=== PATIENT | male | born 1985 | race Caucasian/White ===

== ENCOUNTER 2018-10-23 15:33 | Emergency (ER) | payer OTHER, SELFPAY ==
[2018-10-23 15:35] VITALS: BP 148/98; PULSE 99; RESP 18; TEMP 36.2; O2SAT 97; BMI 35.7
--- NOTE | 2018-10-23 15:52 | ED.VIS.GEN ---
History of Present Illness Chief Complaint: Dental Detail of Chief Complaint: Dental pain, facial swelling, dizziness Informant: Patient, Family Onset: Days Current Severity: Mild Maximum Severity: Mild Narrative: Patient states that he had right upper dental pain 2 days ago. He took some Tylenol and yesterday seemed to feel well. This morning he noted some right facial swelling. Approximate hour before arrival he noted the swelling seem to be getting worse and he felt somewhat dizzy when first standing up. He does have cavities filled in the right upper teeth and states that he was told at one point he may require root canal. He has not had any recent problems with his teeth. Past Medical History Primary Care Physician: Matthieu Moran MD [Primary Care Provider] - Prior records reviewed: Yes Past Medical History: - - Reviewed Lives: Spouse/ Significant Other Review of Systems General: Denies: Chills, Fever Eyes: Denies: Visual changes - bilaterally ENT: Reports: - - Right facial swelling. Denies: Bilateral ear pain, Sore throat Cardiovascular: Denies: Chest pain Respiratory: Denies: Dyspnea Gastrointestinal: Denies: Abdominal pain Musculoskeletal: Denies: Neck pain Skin: Denies: Rash Neurological: Denies: Headache Physical Exam Vital Signs/Narrative: Vital Signs Temp Pulse Resp BP Pulse Ox 10/23/18 15:35 97.1 F L 99 18 148/98 H 97 Inital Vital Signs reviewed: Yes General: Well nourished, Well developed Head: Normocephalic Eyes: Perrl, EOMI ENT: TM's clear, - - Right maxillary second molar is mildly tender to palpation. Fillings are in place along the molars. There is no significant gum edema. He does have facial swelling over the right maxilla. No erythema. Neck: Supple, No lymphadenopathy Cardiovascular: Regular rate, Regular rhythm Respiratory: No distress, CTA bilaterally Abdomen: Soft, Nontender Skin: Normal color Neurological: Alert, Oriented x3 Psychological: Normal affect Diagnostic/Tx/Re-eval - Medical Decision Making Patient will be given a course of Augmentin to cover both dental as well as sinus. He has a dentist that he can follow-up with this week. ED Disposition - Plan for ED Patient: Disposition: Home or Assisted Living Diagnosis: Dental infection Instructions: Dental Abscess Prescriptions: Amox/Clavulanate Tablet [Augmentin Tablet] 875 mg PO Q12H #20 tablet Referrals: Matthieu Moran MD [Primary Care Provider] - Additional Instructions: Follow-up with your dentist later this week as discussed.
[2018-10-23] MEDS: Amox/Clavulanate 875 MG Tablet PO (16:02)
--- NOTE | 2018-10-23 16:03 | ED.RN ---
DISCHARGE INSTRUCTIONS GIVEN TO AND REVIEWED WITH PATIENT, PATIENT DENIES QUESTIONS OR CONCERNS AND VOICES UNDERSTANDING OF DISCHARGE INSTRUCTIONS. PT AMBULATES OUT OF ROOM WITHOUT DIFFICULTY.
== END 2018-10-23 16:12 | disposition home or self-care (01) ==
LOC: ED 16:10
PROVIDERS: Emergency Provider Emergency Medicine; Family Provider Family Medicine; PCP Family Medicine
DX: K04.7 Periapical abscess without sinus (principal)
CPT/HCPCS: 99283

== ENCOUNTER → 2024-03-27 | Outpatient (CLI) | payer OTHER, SELFPAY ==
[2024-03-27 15:21] LABS: Absolute Neutrophil Count 3.5 X10^3/uL (2.0-7.7); Basophil# 0.07 X10^3/uL; Basophil% 0.9 % (0-1); Eosinophil# 0.39 X10^3/uL; Eosinophils% 4.7 % (0-5); Hematocrit 43.4 % (40-54); Hemoglobin 13.9 g/dL (13.0-16.5); Lymphocyte % 46.2 % (19-41); Mean Corpuscular Hgb 28.5 pg (27.0-32.0); Mean Corpuscular Volume 89.1 fL (80-94); Mean Platelet Vol. 8.9 fl (6.2-12.0); Monocyte# 0.41 X10^3/uL; NRBC Flagged by Analyzer 0 % (0-5); Neutrophil # 3.53 X10^3/uL (2.7-7.7); Neutrophil % 42.8 % (47-70); Platelet Count 401 K/mm3 (150-450); RBC Distribution Width CV 13.2 % (11.6-14.6); RBC Distribution Width SD 43.2 fl (35.1-43.9); Red Blood Count 4.87 M/mm3 (4.6-6.2); White Blood Count 8.2 K/mm3 (4.4-11.0)
[2024-03-27 15:44] LABS: Anion Gap 7 (5-15); BUN 14 mg/dL (7-18); BUN/Creat Ratio 12.8 RATIO (10-20); Calcium,Total 9.7 mg/dL (8.5-10.1); Chloride 108 mmol/L (98-107); Creatinine, Serum 1.09 mg/dL (0.70-1.30); EST Glomerular Filtration Rate 80 mL/min (>60); Est Glom Filt Rate - Afr Amer 97 mL/min (>60); Glucose 119 mg/dL (74-106); Potassium 3.8 mmol/L (3.5-5.1); Sodium Level 140 mmol/L (136-145)
== END | disposition home or self-care (01) ==
PROVIDERS: PCP Family Medicine; Referring Provider Specialist; Visit Provider Specialist
DX: Z01.818 Encounter for other preprocedural examination (principal)
CPT/HCPCS: 36415; 80048; 85025

== ENCOUNTER → 2024-04-05 | Outpatient (CLI) | payer OTHER, SELFPAY ==
--- NOTE | 2024-04-05 13:45 | GANG_PTH ---
PATIENT: JEANINE CANDELARIA LOC: [facility] U#:[id number] AGE/SX: 39/M ROOM: RE04/05/[address]: Dr. Leno Moran MD : [id number] BED: DIS: 04/05/2024 SPEC #: [id number] RECD: 04/05/24 16:23 STATUS: MARITA REJosesito #: [id number] KASSANDRA: 04/05/24 13:[address]: Leno Moran DEPT: SURGICAL PATHOLOGY RECD BY: Keila Augustine ENTERED: 04/06/24 08:22 SP TYPE: GANGLION OTHR DR: Dr. Matthieu Moran MD Tissues: GANGLION CYST Procedures: Surgery Specimen Level III HEADER OPERATION: Right wrist dorsal ganglion cyst PRE-OP DIAGNOSIS: Ganglion cyst TISSUE SUBMITTED: Right wrist MICROSCOPIC DIAGNOSIS Right wrist ganglion cyst, excision: Consistent with ganglion cyst with reactive changes. SJ.mr 04/09/2024 MICROSCOPIC DESCRIPTION Slides are reviewed. GROSS DESCRIPTION Received is one container labeled with the patient's name and not further designated. The specimen consists of two pieces of asencio soft tissue measuring in aggregate 1.5 x 1.5 x 0.3cm. One of the pieces are bisected. The entire specimen is submitted in one cassette. 04/06/2024 TC:5 CPT:30502
== END | disposition home or self-care (01) ==
LOC: LABSPEC 15:22
PROVIDERS: PCP Family Medicine; Referring Provider Specialist; Visit Provider Specialist
DX: M67.431 Ganglion, right wrist (principal)
CPT/HCPCS: 88304